=== PATIENT | male | born 1960 | race Caucasian/White ===

== ENCOUNTER → 2016-08-23 | Outpatient (CLI) | payer BC ==
[2016-08-23 13:32] VITALS: BP 135/79; PULSE 73; RESP 16; TEMP 97.9; BMI 37.1
--- NOTE | 2016-10-18 03:32 | P.PN ---
Progress Note - Text DATE OF SERVICE: 09/02/2016 CHIEF COMPLAINT: Follow-up sleeve gastrectomy. HISTORY OF PRESENT ILLNESS: Pablo Dobbs is a 55-year-old gentleman who is status post sleeve gastrectomy in 2012. He has had some difficulty with his weight as he is experiencing weight gain. At his height of 5 feet 9 inches his ideal body weight is 168 pounds. His highest weight was 340 pounds. Today he comes in weighing 251 pounds. He has maintained an 89 pound weight loss. Percentage excess weight loss is 52%. He has gained 2 pounds in approximately 5 months. Body mass index is reduced from 50.3 down to 37.2. Total BMI reduction is 13. He has had troubles with sleep which has also affected his overall weight loss. He uses a CPAP machine where he says is too dry. He now comes in for further evaluation and management. PAST MEDICAL HISTORY: 1. Osteoarthritis. 2. Obstructive sleep apnea. 3. Hypertension. 4. Gastroesophageal reflux disease. PAST SURGICAL HISTORY: 1. Adenoidectomy. 2. Sleeve gastrectomy. 3. Tonsillectomy. 4. Laminectomy. 5. Left shoulder repair x2. MEDICATIONS: 1. Vitamin B12. 2. Multivitamin. ALLERGIES: Denies. SOCIAL HISTORY: No recent tobacco use. He past alcohol use. FAMILY HISTORY: Pertinent for morbid obesity. REVIEW OF SYSTEMS: RESPIRATORY: Has obstructive sleep apnea, however, has difficulty with machine. CONSTITUTIONAL: At his height of 5 feet 9 inches his ideal body weight is 168 pounds. His highest weight was 340 pounds. Today he comes in weighing 251 pounds. He has maintained an 89 pound weight loss. Percentage excess weight loss is 52%. He has gained 2 pounds in approximately 5 months. Body mass index is reduced from 50.3 down to 37.2. Total BMI reduction is 13. HEENT: No trouble with vision, hearing or dysphagia. ENDOCRINE: No reports of diabetes or thyroid disorder. CARDIOVASCULAR: A prior history of hypertension. No reports of recent heart attack or heart disease. GASTROINTESTINAL: Denies any active gastroesophageal reflux disease. No reports of dumping syndrome. MUSCULOSKELETAL: History of osteoarthritis of the back. NEUROLOGIC: No reports of stroke or seizure disorder. PSYCH: No reports of depression or suicidal HEMATOLOGIC: Denies any easy bruising or bleeding. PHYSICAL EXAM: VITAL SIGNS: 97.9, 73, 16, 135/79. GENERAL: Well-developed male in no acute distress. HEENT: No scleral icterus. Extraocular movements grossly intact. Moist buccal mucosa. NECK: Supple without lymphadenopathy. CHEST: Nonlabored respirations. Equal bilateral excursions. CARDIOVASCULAR: Regular rate and rhythm. ABDOMEN: Soft, nontender, nondistended. No palpable incisional hernias. MUSCULOSKELETAL: No clubbing, cyanosis, or edema. NEURO: No focal or lateralizing signs. PSYCH: Appropriate affect. Alert, oriented to person, place, and time. LABS: Previous bariatric metabolic panel was reviewed, demonstrates no nutritional deficiencies. ASSESSMENT: 1. Morbid obesity due to excess calories. 2. Body mass index reduced from 50.3 down to 37.2. 3. Status post sleeve gastrectomy. 4. Weight regain following sleeve gastrectomy. PLAN: 1. With his troubles with sleep apnea this may also affect his overall weight loss. 2. I asked him to chronicle and journal his food entry including protein and calories. Silent calories may also affects his overall weight gain. 3. With regards to his sleep, he does report better sleep without his CPAP machine. 4. Recommend at least a 2 week low-carb, high protein diet for improvement of his weight. 5. Follow-up in approximately one month. [facility]
== END | disposition home or self-care (01) ==
LOC: BARWHC3 13:15
PROVIDERS: ATTEND Surgery Plastic and Reconstructive Surgery
DX: Z48.815 Encounter for surgical aftercare following surgery on the digestive system (principal); E66.01 Morbid (severe) obesity due to excess calories; Z68.37 Body mass index [BMI] 37.0-37.9, adult; Z98.84 Bariatric surgery status; G47.33 Obstructive sleep apnea (adult) (pediatric)
CPT/HCPCS: 99211

== ENCOUNTER → 2016-10-12 | Outpatient (CLI) | payer BC ==
--- NOTE | 2016-10-13 07:04 | PN ---
DATE OF SERVICE: 10/12/2016 A 56-year-old gentleman who had been followed in the sleep center for treatment of obstructive sleep apnea/hypopnea syndrome. Recently patient had a home sleep study and after that started on treatment with auto PAP and I explained the results of the sleep studies in detail. Presently, patient is on treatment with CPAP on automatic regimen with the pressure between 5 and 15 cm of water. Patient has difficulties with the usage of his machine secondary to collection of the water in the tube and then water goes to the mask and his nose. Position of the machine is about the same level as his head. Sometimes he feels that pressure in his mask is too high. No complaints on that pressure in the mask that is too low sometimes. Usage of the machine 27% and 12% for more than 4 hours. The same apnea-hypopnea index is 2.8, which is good range. A leak is up to 32 L per minute. Maximal pressure in CPAP unit 11.1, ( ) 6.9. MEDICATIONS: None at the present time. PHYSICAL EXAMINATION: During physical exam, the patient is in no distress. VITAL SIGNS: BP 133/76, HR 64, RR 16. Weight 254. Temperature 98.1. Oxygen saturation at room air 95%. HEENT: PERRLA. EOMI. Oropharynx extremely low position of soft palate. NECK: Supple. No JVD, Thyroid is not palpable. LUNGS: Clear to percussion and to auscultation. Good air exchange. No wheezing or rhonchi. HEART: S1, S2 regular. No murmurs, gallops, or rubs. ABDOMEN: Slightly obese. PARTS RUNNER: Awake, alert, and oriented x3. Cranial nerves 2 to 7 intact. There is no fasciculation or atrophy noted. No focal deficits observed. IMPRESSION: Obstructive sleep apnea-hypopnea syndrome. Apnea-hypopnea index 11.8. Respiration mostly on control with auto Pap, but patient has difficulties to use CPAP equipment secondary to probably with the humidity. [place] Sleepiness Scale today is 9. During one of the previous visits, it was 16. PLAN: 1. I changed regimen in his CPAP decreasing maximal pressure to 11. 2. We will continue ( ) regimen with range of pressure between 5 and 11. 3. Tube will be an automatic regimen for the heating. 4. Heater I adjusted down to the level 2. 5. Patient will put machine on the lower level than his head and about 2 feet difference in the height. 6. Patient will continue to use his equipment every night for the whole night. I will see the patient for follow-up visit in 2 months. Thank you very much for allowing me to participate in the management of your patient. Sincerely, Castro Gomez MD, PhD, FAASM Diplomat of [place] [employer], Sleep Medicine Board by [place] [employer] [place] [employer] Exercise Instruct of [facility] [place]
== END ==
LOC: SLEEP 16:36
PROVIDERS: ATTEND Internal Medicine
DX: G47.33 Obstructive sleep apnea (adult) (pediatric) (principal)

== ENCOUNTER → 2016-12-07 | Outpatient (CLI) | payer BC ==
--- NOTE | 2016-12-07 17:53 | PN ---
DATE OF SERVICE: 12/07/2016 This patient is a 56-year-old gentleman who has been followed in the sleep center for treatment of obstructive sleep apnea/hypopnea syndrome. During the previous visit, I adjusted the pressure in his CPAP lower. The maximal CPAP pressure is 11. Machine is in automatic regimen with a range of pressure between 5 and 11. With this regimen, patient continued to use equipment every night. He did not bring his machine with him, so I cannot check compliance. No snoring. No sleepiness. [place] Sleepiness Scale today is 9, which is borderline. The patient is experiencing some discomfort with his full-face mask. It is pressing on his nose. MEDICATIONS: None. During physical exam, patient is a pleasant 56-year-old gentleman in no distress. VITAL SIGNS: BP 133/75, HR 60, RR 16. Height 5 feet 8 inches. Weight 255. BMI 38.7. Temperature 98.1. Oxygen saturation at room air 96%. HEENT: PERRLA. EOMI. Evaluation of oropharynx showed tongue protrudes midline; extremely low position of soft palate. NECK: Supple. No JVD. Thyroid is not palpable. LUNGS: Clear to percussion and to auscultation. Good air exchange. No wheezing or rhonchi. HEART: S1, S2 regular. No murmurs, gallops or rubs. ABDOMEN: Soft and non-tender. Bowel sounds are present. No organomegaly appreciated. EXTREMITIES: No clubbing or cyanosis. UPHOLSTERY PARTS SORTER: Awake, alert and oriented x3. Cranial nerves 2 through 7 are intact. There is no fasciculation or atrophy noted. No focal deficits observed. IMPRESSION: 1. Obstructive sleep apnea/hypopnea syndrome. Patient is benefitting from treatment. 2. Obesity. 3. Status post bariatric surgery 3 years ago using a sleeve. 4. Status post left rotation cuff surgery 2 years ago. 5. Status post tonsillectomy in childhood. PLAN: 1. We fitted the patient with a MiraView full-face mask. Patient likes it. I am signing a prescription for this type of mask. 2. Losing weight. 3. Sleep hygiene with regular time in bed for at least 8 hours. 4. No driving if feeling any sleepiness. 5. Using CPAP equipment every night for the whole night. Thank you very much for allowing me to participate in the management of your patient. Sincerely, Castro Stefadu. , PhD, FAASM. Diplomat of [place] [employer], Sleep Medicine Board by [employer] Route Rider Supervisor of [facility] [place] Preferable position during sleep on the side. CARRIE
== END | disposition home or self-care (01) ==
LOC: SLEEP 11:35
PROVIDERS: ATTEND Internal Medicine
DX: G47.33 Obstructive sleep apnea (adult) (pediatric) (principal); E66.9 Obesity, unspecified; Z98.84 Bariatric surgery status

== ENCOUNTER → 2017-02-08 | Outpatient (CLI) | payer BC ==
--- NOTE | 2017-02-08 18:35 | PN ---
PROGRESS NOTE DATE OF SERVICE: 02/08/2017 56-year-old gentleman has been followed in Sleep Center for treatment of obstructive sleep apnea-hypopnea syndrome. The patient was started on treatment with CPAP about 2 months ago with fullface mask Alexandra View, but he has some leak from the mask to the eyes. Subsequently, mask was changed to the nasal pillow mask. Presently, he is trying to use nasal pillow mask air feet P10, but he has difficulties with exhalation because he feels that the pressure is too much while he exhales. Comparing with the previous mask, he feels that the exhaust on the previous mask was much easier then on this particular mask. I checked CPAP unit. It is in automatic regimen from 5-11 cm of water. Most of the time pressure was in the range of 7.9. The patient used it 01/20 nights and only 1 night for more than 4 hours. Leak is 14 L/minute which is acceptable. Apnea-hypopnea index on the machine is 1.9, which is perfect. [place] Sleepiness Scale significantly increased to 19. MEDICATIONS: None. PHYSICAL EXAM: Patient in no distress. BP 110/62, HR 84, RR 16, height 5 feet 8 inches, weight 258, BMI 39.2, temperature 98.2, oxygen saturation room air 97%. HEENT: PERRLA, EOMI. Evaluation of oropharynx showed extremely low position of soft palate. NECK: Supple. No JVD. Thyroid is not palpable. LUNGS: Clear to percussion and to auscultation. Good air exchange. No wheezing or rhonchi. HEART: S1, S2 regular. No murmurs, gallops or rubs. ABDOMEN: Slightly obese. Soft and nontender. Bowel sounds are present. No organomegaly appreciated. EXTREMITIES: No cyanosis or clubbing. BRIQUETTE MAKER: Awake, alert and oriented x3. Cranial nerves II through VII intact. There is no fasciculation or atrophy noted. No focal deficits observed. IMPRESSION: 1. Obstructive sleep apnea-hypopnea syndrome. Patient cannot use his CPAP equipment properly because he has difficulties with exhalation. Cannot exhale against the pressure. 2. Status post bariatric surgery 3 years ago. 3. Status post left rotator cuff surgery 2 years ago. 4. Status post tonsillectomy in childhood. 5. Obesity, BMI 39.2. PLAN: 1. We will try a different style of nasal pillow mask with the larger exhaust. 2. If it will not work, we may need to consider using of BiPAP machine. 3. I changed maximal pressure in CPAP unit to 8.2 cm of water. 4. Losing weight. 5. Sleep hygiene with regular time in bed for at least 8 hours. 6. No driving if feeling any sleepiness. Thank you very much for allowing me to participate in management of your patient. Sincerely, Castro Gomez MD, PhD, FAASM Diplomat of [place] [employer], Sleep Medicine Board by [place] [employer] [employer] Flight Operations Inspector of [facility] [place] MMODL / IJN: [id number] /
== END | disposition home or self-care (01) ==
LOC: SLEEP 15:07
PROVIDERS: ATTEND Internal Medicine
DX: G47.33 Obstructive sleep apnea (adult) (pediatric) (principal); E66.9 Obesity, unspecified; Z98.84 Bariatric surgery status; Z98.890 Other specified postprocedural states; Z68.39 Body mass index [BMI] 39.0-39.9, adult

== ENCOUNTER → 2017-02-26 | Outpatient (CLI) | payer BC ==
--- NOTE | 2017-02-26 23:14 | MR ---
EXAMINATION TYPE: MR lumbar spine wo/w con DATE OF EXAM: 02/26/2017 COMPARISON: 07/01/2013 HISTORY: LBP, BLE radic, prior surgery 4 years ago TECHNIQUE: Multiplanar, multisequence images of the lumbar spine were acquired utilizing 12 mL intravenous Gadav ist gadolinium contrast. The vertebra have normal alignment. There is moderate narrowing of the disc spaces from L2 to L5 with decreased signal in the disks. There is hypertrophic moderate osteophyte formation involving the end plates. There is no paraspinal mass. There is no compression fracture. I see no significant narrowing of the spinal canal. The contrast images show no pathologic enhancement. There is hypertrophic facet arthropathy and bilateral neural foraminal narrowing at L4-5 and L5-S1. IMPRESSION: Moderate multilevel spondylosis. No pathologic enhancement. No adverse change compared to old exam. N o significant spinal stenosis. Mild neural foraminal stenosis due to facet arthropathy.
== END | disposition home or self-care (01) ==
LOC: RADMRIMAIN 17:02
PROVIDERS: ATTEND Family Medicine
DX: M99.73 Connective tissue and disc stenosis of intervertebral foramina of lumbar region (principal); M47.816 Spondylosis without myelopathy or radiculopathy, lumbar region; M46.96 Unspecified inflammatory spondylopathy, lumbar region
CPT/HCPCS: 72158; A9577

== ENCOUNTER → 2018-03-06 | Outpatient (CLI) | payer BC ==
[2018-03-01 14:55] VITALS: BMI 30.8
[2018-03-06 11:44] VITALS: BP 188/77; PULSE 64; RESP 64
--- NOTE | 2018-03-07 19:37 | P.PAINCN ---
History of Present Illness - Reason for Consult Consult date: 03/06/18 - History of Present Illness This is the initial consultation visit for this 57-year-old male with chronic history of severe low back pain, pain started 10 years ago without any initiating event and patient had the lumbar laminectomy surgery done 5 years ago , he had some benefit from the surgery , but over the last 1 year he started complaining of severe low back pain localized in the low back area with radiation to the buttocks and the posterior aspect of both lower extremities, he reported that the pain is constant and increased with changing position, and increased with any activity, he denies any fever or night sweats. Denies any motor or sensory deficits and that is no change in the bowel movement or urination, the pain never radiated to the front of the lower extremities Past Medical History Past Medical History: No Reported History, Sleep Apnea/CPAP/BIPAP Additional Past Medical History / Comment(s): HIATAL HERNIA, gout, lower back pain/sciatica History of Any Multi-Drug Resistant Organisms: None Reported Past Surgical History: Adenoidectomy, Back Surgery, Bariatric Surgery, Orthopedic Surgery, Tonsillectomy Additional Past Surgical History / Comment(s): GASTRIC SLEEVE, gastric bypass, laminectomy, left shoulder surgery x2 Past Anesthesia/Blood Transfusion Reactions: No Reported Reaction Smoking Status: Never smoker - Past Family History Father Additional Family Medical History / Comment(s): 2013 from "old age" per son Mother Family Medical History: No Reported History Medications and Allergies Home Medications Medication Instructions Recorded Confirmed Type Ferrous Sulfate [Feosol] 325 mg PO DAILY 08/30/15 03/01/18 History Multivitamins, Thera [Multivitamin] 1 tab PO DAILY 08/30/15 03/01/18 History Cyanocobalamin (Vitamin B-12) 5,000 mcg PO DAILY 03/15/16 03/01/18 History [Vitamin B12] Allergies Allergy/AdvReac Type Severity Reaction Status Date / Time No Known Allergies Allergy Verified 03/01/18 14:49 Physical Exam Social history : not smoker , NO ETOH , NO Illegal drugs use . Review of Systems : 1- Constitutional : no chills , no fever , no night sweats , 2- Ears : no ear discharge , no change in hearing 3-Nose, Mouth ,Throat ; no bleeding gums, no sore throat , no epistaxis , 4-Cardiovascular : Denies chest pain, , no orthopnea , no palpitation 5-Respiratory : Denies cough , no dyspnea , no hemoptysis 6-Gastrointestinal :, no change in bowel habits , no coffee- ground emesis . 7-Genitourinary : No hematuria , no discharge , no incontinence, 8-Musculoskeletal : No gait dysfunction , report low back pain , 9- Neurological : no ataxia , no tremor , no sezure , 10-Psychatric , no suicidal ideation no hallucination 11- Endocrine : no cold intolerence , no polyuria , no polydypsia , 12-Hematologic : no easy bleeding , no easy brusing , 13-Allergic / immunology : no angioedema , no wheezing ,no allergic rhinitis 14-Integumentary : no brttle nails , no change hair / nails , no foot/leg ulcers . Physical Examinations : 1-Constitutional : Cooperative , not in acute distress . 2-HEENT : nech ; supple , no Lymphadenopathy , no Thyromegaly , :eyes , no icterus, no photophobia . ENT : , normal oropharynx , no Thrush 3- Respiratory : Chest clear to auscultations Bilaterally , no wheezing . 4- Cardiovascular : regular rate and rhythem , S1 , S2 , no S3 , no S4. 5- Gastrointestinal: abdomen soft no tenderness , no organomegally . 6- Genitourinary : Defferred . 7-Integumentary : No cellulitis , no ulcers , normal skin turgor , no cyanotic . 8- neurologic : Cranial nerve II to XII intact , no focal neurological deffecit 9-psychatric : alert , oriented X 3 , appropriate affect , intact judgment and insight . 10-Lymphatic : no Lymphadenopathy. 11- musculoskeltal: normal gait Lumber spine moter stegnth lower extremities ,thigh and legs 5/5 Right side , 5/5 Left side deep tendon reflexes : normal Knee Jerk , normal ankle Jerk positive lumber facet Loading Test Range of motion of the lumbar spine Flexion 60 degrees, extension 30 degrees strait leg raising test , negative bilaterally Fabere test negative bilaterally Results Comments: MRI of the lumbar spine multilevel lumbar facet arthropathy and bilateral foraminal narrowing Assessment and Plan Plan: Assessment and plan=1 chronic severe low back pain secondary to lumbar spondylosis with lumbar facet arthropathy, and failed back surgery syndrome and lumbar area, patient will be good candidate to have diagnostic medial branch block lumbar area at L3 to S1 , x2 and if it was positive then we will proceed with a radiofrequency ablation of the medial branch lumbar area, examination is appropriate that most of the pain is coming from the facetogenic component, the only positive finding during the examination was the facet loading test, the rest of the physical examination was negative for any abnormalities. Procedure risk and benefits and alternatives discussed with the patient he agreed with proceeding. I also explained to the patient that his blood pressure is significantly elevated and he is to follow up with his primary care regarding his high blood pressure Time with Patient: Greater than 30 PQRS Measure Charge Sheet Measure #130: Documentation of Current Meds in Medical Chart: Patient's medications documented in chart Measure #226: Tobacco Use: Screen & Cessation Intervention: Pt not a tobacco user Measure #111: Pneumonia Vaccination: Pneumococcal vaccine NOT administered or previously given Measure #47: Advance Care Plan: Advance care planning discussed & documented, pt chose/unable to give Measure #412: Opioid Treatment Agreement: No documentation of signed opioid treatment agreement Measure #408: Opioid Therapy Follow-up Evaluation: Patient had NO f/u eval minimum every 3 months during opioid therapy Measure #317: Preventitive Care & Scrn High Bld Press & F/U: Pre-hypertensive or hypertensive BP documented, pt will f/u with PCP Measure #128: Body Mass Index (BMI) Screening & Follow-up: BMI documented ABOVE normal parameters - f/u documented Measure #131: Pain Assessment & Follow-up: Pain positive & plan documented, Follow-up scheduled Measure #431: Unhealthy Alcohol Use Preventative Care & Scrn: Patient not identified as an unhealthy alcohol user PQRS Narrative: Smoking Status Never smoker Do You Want the Pneumonia No Vaccine AT THIS TIME? Blood Pressure 188/77 Pain Intensity [Lower Back] 7 Scale Used Numeric (1 - 10) Hx Alcohol Use (MH) No Home Medications: Ambulatory Orders Ferrous Sulfate [Feosol] 325 mg PO DAILY 08/30/15 Multivitamins, Thera [Multivitamin] 1 tab PO DAILY 08/30/15 Cyanocobalamin (Vitamin B-12) [Vitamin B12] 5,000 mcg PO DAILY 03/15/16
== END ==
LOC: PNWHC3 11:01
PROVIDERS: ATTEND Specialist
DX: G89.29 Other chronic pain (principal); M47.816 Spondylosis without myelopathy or radiculopathy, lumbar region; M46.96 Unspecified inflammatory spondylopathy, lumbar region; M96.1 Postlaminectomy syndrome, not elsewhere classified; Z79.899 Other long term (current) drug therapy
CPT/HCPCS: 99211

== ENCOUNTER → 2018-03-12 | Day surgery (SDC) | payer BC ==
[2018-03-12 09:55] VITALS: TEMP 98
--- NOTE | 2018-03-12 10:44 | P.PCN ---
Date of Procedure: 03/12/18 Surgeon: Brendan Narvaez Description of Procedure: PREOPERATIVE DIAGNOSIS : Lumbar spondylosis with Facet Arthropathy without myelopathy POSTOPERATIVE DIAGNOSIS: same PROCEDURE: Diagnostic lumbar medial branch block with fluoroscopy at bilateral L4, L5, sacral ala ANESTHESIA: Local anesthetic; Surgeon: Brendan Narvaez MD PROCEDURE INDICATION: This is a pleasant 57-year-old gentleman with a history of previous back surgery who has significant lumbar spondylosis and presents today for his first diagnostic lumbar medial branch nerve blocks. PROCEDURE DESCRIPTION: the patient was seen and identified in the preop holding area , risks and benefits and possible complications of the procedure and alternative were discussed with the patient, and the patient agreed to proceed with the procedure and signed the consent patient was taken to procedure room and placed in the prone position. He was monitored with standard monitors. Under strict sterile technique using a right oblique fluoroscopy ,the junction of the transverse process and the superior articulating process of the right L3- 4 , L4- 5, and L5 -S1 vertebra which corresponding to the fluoroscopy image of the eye of the Fidel dog on the block side for the medial branches and subsequently , after local infiltration of skin and subcutaneous tissues with lidocaine 1% one mL at each level ,then one 25-gauge Quincke-type needles was placed at the junction of the base of the transverse process and the superior articular process at the appropriate level, and the needle was advanced until the periosteum contacted, needle placement confirmed with AP oblique and lateral view and after appropriate needle placement confirmed, and after negative aspiration, 0.5 mL of Marcaine 0.5% mixed with 40 mg depomedrol in divided doses was injected at each level and the needle subsequently removed . This procedure was then repeated on the left. At the end of the procedure and the needles removed and a bandage applied after the skin was cleaned the cleaning solution patient taken to recovery room in stable condition and monitors in the recovery room for 20-30 minutes and discharged home in stable condition after discharge criteria met and patient will follow up for repeat of this procedure in 2-4 weeks. He may be good candidate for radio frequency ablation future. EBL: Minimal COMPLICATION: None.
--- NOTE | 2018-03-12 11:03 | FL ---
EXAMINATION TYPE: FL guided pain mgmt statistic DATE OF EXAM: 03/12/2018 COMPARISON: NONE HISTORY: Back pain. Fluoroscopic documentation TECHNIQUE: Fluoroscopy. FINDINGS/IMPRESSION: Fluoroscopic guidance was provided during procedure performed by Dr. Narvaez. A total of 1 seconds of fluoroscopic time was utilized during the procedure and 1 spot images was acqu ired demonstrating multilevel localization bilaterally over the lumbar spine.
[2018-03-12 11:08] VITALS: BP 130/77; PULSE 71; RESP 18
== END | disposition home or self-care (01) ==
LOC: ORPAIN 09:20
PROVIDERS: ATTEND Anesthesiology
DX: M47.816 Spondylosis without myelopathy or radiculopathy, lumbar region (principal); G89.29 Other chronic pain; M96.1 Postlaminectomy syndrome, not elsewhere classified; G47.30 Sleep apnea, unspecified; Z99.89 Dependence on other enabling machines and devices; Z98.84 Bariatric surgery status

== ENCOUNTER 2018-03-28 06:02 | Day surgery (SDC) | payer BC ==
[2018-03-26 12:44] VITALS: BMI 30.8
[2018-03-28 06:57] VITALS: RESP 18; TEMP 97.8
--- NOTE | 2018-03-28 07:29 | P.PCN ---
Date of Procedure: 03/28/18 Preoperative Diagnosis: Lumbar spondylosis without myelopathy Postoperative Diagnosis: Same Procedure(s) Performed: Lumbar medial branch block Surgeon: Chauncey Colon Description of Procedure: Surgeon: Chauncey Colon MD. Procedure: Bilateral lumbar Medial Branch Block at L3/4, L4/5, and L5/S1 No sedation Given for: Anxiety and fear of needles. The patient was seen and examined in the PO. Procedure risks and benefits were fully reviewed with the patient. The patient understands this is a diagnostic if local only is used, as will be the case today. The goal of the procedure is to inject medication into the medial branch or small nerves that go into the facet joints. In this way, we can hopefully identify which of these joints, if any, may be contributing to their pain. Informed consent for procedure was obtained. The patient was taken into the office fluoroscopy procedure room and placed prone on the table. A pillow was placed under the abdomen to reduce lumbar lordosis. Vital signs were closely monitored during the procedure. The skin over the area was prepped with Betadine X 3 and draped in usual sterile manner. Sterile technique was observed throughout procedure. Under biplanar fluoroscopic guidance, the target injection area of the L3, L4, L5 and sacral ala bilateral were targeted. A 25 gauge 31/2 inch spinal needle was then placed at the most medial and superior aspect of the transverse process near the "eye of the Fidel dog". Aspiration for blood was negative. 1 cc of 0.5% marcaine was injected into the targeted areas separately. [place] were withdrawn intact. No complications were noted during the procedure. The patient tolerated the procedure well. The patient was placed in supine position and transferred to the recovery area for observation and remained stable until discharged home. Home discharge instructions were given to the patient by the staff. The patient will schedule a follow up as directed.
[2018-03-28 07:59] VITALS: BP 133/83; PULSE 58
--- NOTE | 2018-03-28 09:32 | FL ---
EXAMINATION TYPE: FL guided pain mgmt statistic DATE OF EXAM: 03/28/2018 FLUOROSCOPY Fluoroscopy time of 21 seconds was used during bilateral lumbar injection. 5 image/s document/s the procedure.
== END 2018-03-28 08:17 | disposition home or self-care (01) ==
LOC: ORPAIN 06:02
PROVIDERS: ATTEND Hospitalist
DX: M47.816 Spondylosis without myelopathy or radiculopathy, lumbar region (principal)

== ENCOUNTER → 2018-04-09 | Outpatient (CLI) | payer BC ==
[2018-04-09 14:52] VITALS: BP 130/84; PULSE 63; RESP 16
--- NOTE | 2018-04-10 14:05 | P.PN ---
Subjective Progress Note Date: 04/09/18 This is the follow up visit for this 57-year-old male with chronic history of severe low back pain, was diagnosed with lumbar spondylosis with lumbar facet arthropathy , and failed back surgery syndrome and lumbar area , we have done diagnostic medial branch blocks lumbar area 2 , she reported that his low back pain dropped from 8/10 before the block to 2/10 after the first block , with the second block the pain dropped from 4/10- droped to 0/10 and the pain relief was for short-term , patient continued to have severe ,constant pain , the pain increased with changing position, and increased with any activity, he denies any fever or night sweats. Denies any motor or sensory deficits and that is no change in the bowel movement or urination, the pain never radiated to the front of the lower extremities Physical Examinations : 1-Constitutional : Cooperative , not in acute distress . 2-HEENT : nech ; supple , no Lymphadenopathy , no Thyromegaly , :eyes , no icterus, no photophobia . ENT : , normal oropharynx , no Thrush 3- Respiratory : Chest clear to auscultations Bilaterally , no wheezing . 4- Cardiovascular : regular rate and rhythem , S1 , S2 , no S3 , no S4. 5- Gastrointestinal: abdomen soft no tenderness , no organomegally . 6- Genitourinary : Defferred . 7-Integumentary : No cellulitis , no ulcers , normal skin turgor , no cyanotic . 8- neurologic : Cranial nerve II to XII intact , no focal neurological deffecit 9-psychatric : alert , oriented X 3 , appropriate affect , intact judgment and insight . 10-Lymphatic : no Lymphadenopathy. 11- musculoskeltal: normal gait Lumber spine moter stegnth lower extremities ,thigh and legs 5/5 Right side , 5/5 Left side deep tendon reflexes : normal Knee Jerk , normal ankle Jerk positive lumber facet Loading Test Range of motion of the lumbar spine Flexion 60 degrees, extension 30 degrees strait leg raising test , negative bilaterally Fabere test negative bilaterally Results: MRI of the lumbar spine multilevel lumbar facet arthropathy and bilateral foraminal narrowing Assessment and plan=1 chronic severe low back pain secondary to lumbar spondylosis with lumbar facet arthropathy, and failed back surgery syndrome and lumbar area, patient will be good candidate to have radiofrequency ablation of the medial branch lumbar area L3 to S1, we'll start with the left side than to the right side PQRS Measure Charge Sheet Measure #130: Documentation of Current Meds in Medical Chart: Patient's medications documented in chart Measure #226: Tobacco Use: Screen & Cessation Intervention: Pt not a tobacco user Measure #111: Pneumonia Vaccination: Pneumococcal vaccine NOT administered or previously given Measure #47: Advance Care Plan: Advance care planning discussed & documented, pt chose/unable to give Measure #412: Opioid Treatment Agreement: No documentation of signed opioid treatment agreement Measure #408: Opioid Therapy Follow-up Evaluation: Patient had NO f/u eval minimum every 3 months during opioid therapy Measure #317: Preventitive Care & Scrn High Bld Press & F/U: normal BP (130/ 84 ) documented, pt will f/u with PCP Measure #128: Body Mass Index (BMI) Screening & Follow-up: BMI documented ( 30,8 )ABOVE normal parameters - f/u documented Measure #131: Pain Assessment & Follow-up: Pain positive & plan documented, Follow-up scheduled Measure #431: Unhealthy Alcohol Use Preventative Care & Scrn: Patient not identified as an unhealthy alcohol user PQRS Narrative: Objective - Vital Signs Vital signs: Vital Signs Temp Pulse 63 04/09/18 14:41 Resp 16 04/09/18 14:41 BP 130/84 04/09/18 14:41 Pulse Ox 98 04/09/18 14:41 Intake & Output 04/09/18 04/10/18 04/10/18 18:59 06:59 18:59 Weight 97.522 kg
== END | disposition home or self-care (01) ==
LOC: PNWHC3 13:57
PROVIDERS: ATTEND Specialist
DX: G89.29 Other chronic pain (principal); M96.1 Postlaminectomy syndrome, not elsewhere classified; M47.816 Spondylosis without myelopathy or radiculopathy, lumbar region; M46.96 Unspecified inflammatory spondylopathy, lumbar region
CPT/HCPCS: 99211

== ENCOUNTER 2018-05-06 07:38 | Day surgery (SDC) | payer BC ==
[2018-05-02 14:25] VITALS: BMI 30.8
[~2018-05-06 07:38] MED LIST: SODIUM CHLORIDE 0.9% 500 ML 500 ML IV SCH
[2018-05-06 08:13] VITALS: RESP 16; TEMP 97.5
--- NOTE | 2018-05-06 09:46 | P.PCN ---
Date of Procedure: 05/06/18 Procedure(s) Performed: PREOPERATIVE DIAGNOSIS: 1-Lumbar Spondylosis with Facet Arthropathy without myelopathy. 2- Lumber degenerative disc disease POSTOPERATIVE DIAGNOSIS: 1- Lumbar Spondylosis with Facet Arthropathy without myelopathy. 2- Lumber degenerative disc disease PROCEDURES : Left Radiofrequency thermocoagulation, L3-L4, L4-L5, and L5-S1 medial branch, with fluoroscopic guidance ANESTHESIA: local infiltration with Ropivacaine 0.5 % . ( NO IV sedation ) EBL: Minimal PROCEDURE INDICATION: The patient with low back pain secondary to lumbar facet arthropathy who had more than 50% relief of her pain with previous diagnostic lumbar medial branch block with bupivacaine. PROCEDURE DESCRIPTION / TECHNIQUE: The patient was seen and identified in the preoperative area. Risks, benefits, complications, including but not limited to risk of infection ,bleeding , allergic reactions to the medications and no complete pain releife , and alternatives were discussed with the patient, the patient agreed to proceed with the procedure and signed the consent. Vital signs remained stable throughout the procedure. Patient was taken to the OR and time out was completed. The patient was placed in the prone position on the procedure table. The lumber area was prepped and draped in the usual sterile fashion. . Vital signs were closely monitored during the procedure . Using AP and then oblique fluoroscopy, the ``eye of the Fidel dog corresponding to the connection between the superior and transverse articular processes of left L3, L4, and L5 were identified, marked, and localized with 1 % lidocaine. Subsequently, a 18 [id number] radiofrequency cannula with a 10- mm active tip was advanced guided by fluoroscopy to each of the``eyes of the Fidel dog at left L3, L4, and L5. Each site then underwent sensory testing at 50 Hz and 0 to 1 volt and motor testing at 2.5 Hz and 0 to 3 volt with local stimulation, but no radicular symptoms down the legs. Thereafter the left L3-4, L4-5, and L5-S1 sites underwent radiofrequency thermocoagulation at 80 degrees celsius for 90 seconds after injecting 0.5 ml of PF Ropivacaine 1ml, then after the thermocoagulation done , 1 ml of the block solution containing Kenalog 40 mg and 3 ml of Ropivacaine 0.5% was injected at the left L3-4 , L4 -5 , and L5-S1, levels after negative aspiration of CSF and blood and with no paresthesias. Cannulas were retracted while injecting lidocaine 1% until the needle is out. At the end of the procedure, the skin was cleansed and bandages were applied. COMPLICATIONS: No acute complications. DISPOSITION / PLANS: The patient was placed in a supine position and transferred to the recovery area in a stable condition for observation and was discharged from the recovery room after meeting discharge criteria. Home discharge instructions given to the patient by the staff. The patient was reexamined prior to discharge. The patient will schedule a follow up in the clinic in 2-4 weeks.
[2018-05-06 10:24] VITALS: BP 122/76; PULSE 59
--- NOTE | 2018-05-06 10:40 | FL ---
EXAMINATION TYPE: FL guided pain mgmt statistic DATE OF EXAM: 05/06/2018 CLINICAL HISTORY: Low back pain. TECHNIQUE: Fluoroscopy. COMPARISON: None. FINDINGS: Fluoroscopic guidance was provided during pain relief procedure performed by Dr. Olivares . A total of 13 seconds of fluoroscopic time was utilized during the procedure and 3 spot images are acquired. Images acquired shows needle localization at multiple levels within the lumbar spine. IMPRESSION: As Above.
== END 2018-05-06 10:25 | disposition home or self-care (01) ==
LOC: ORPAIN 07:38
PROVIDERS: ATTEND Specialist
DX: M47.816 Spondylosis without myelopathy or radiculopathy, lumbar region (principal); M51.36 Other intervertebral disc degeneration, lumbar region
CPT/HCPCS: 64635; 64636 ×2; J1030

== ENCOUNTER 2018-06-06 06:35 | Day surgery (SDC) | payer BC ==
[2018-06-05 10:13] VITALS: BMI 31.5
[2018-06-06 07:25] VITALS: RESP 16; TEMP 98.2
--- NOTE | 2018-06-06 08:51 | P.PCN ---
Date of Procedure: 06/06/18 Surgeon: Zain Alcazar Pathology: none sent Condition: stable Disposition: PACU Description of Procedure: PREOPERATIVE DIAGNOSIS: Lumbar spondylosis without myelopathy,PLPS POSTOPERATIVE DIAGNOSIS: Lumbar spondylosis without myelopathy,PLPS PROCEDURES : Radiofrequency thermocoagulation L3-L4, L4-L5, and L5-S1 medial branch, with fluoroscopic guidance ANESTHESIA: Local only with 1% lidocaine EBL: Minimal PROCEDURE INDICATION: The patient with low back pain secondary to lumbar facet arthropathy who had more than 50% relief of her pain with previous diagnostic lumbar medial branch block with bupivacaine. PROCEDURE DESCRIPTION / TECHNIQUE: The patient was seen and identified in the preoperative area. Risks, benefits, complications, including but not limited to risk of infection ,bleeding , allergic reactions to the medications and no complete pain relief , and alternatives were discussed with the patient, the patient agreed to proceed with the procedure and signed the consent. IV was started. Vital signs remained stable throughout the procedure. Patient was taken to the OR and time out was completed. The patient was placed in the prone position on the procedure table. The lumber area was prepped and draped in the usual sterile fashion. . Vital signs were closely monitored during the procedure .IV sedation was used during the procedure to decrease patients anxiety. The target points were identified as follows: For the L5-S1 level which corresponds to the dorsal ramus of L5 the target point was at the superior medial aspect of the sacral ala on the Rt side of the spine on the AP view of fluoroscopy and for the L2, L3, and L4 medial branches the target points were at the connection between the transverse process and the superior articular process of L3, L4, and L5 vertebra respectively on the Rt oblique view of fluoroscopy. skin was marked, and localized with 1% lidocaineat these points. Subsequently, an 18 -kt radiofrequency needles with a 10-mm curved active tips were advanced guided by fluoroscopy to each of the target points mentioned above in a superior medial direction to get the active tips as parallel as possible to the medial branches tracks. AP, oblique, and lateral views of fluoroscopy were used to verify needle tips position. Each level then underwent motor testing at 2.5 Hz and 0 to 3 volt with local stimulation, but no radicular symptoms down the legs. Thereafter radiofrequency thermocoagulation at 80 degrees celsius for 90 seconds after injecting 1 ml of PF Marcaine 0.5%(3 mls) with 40 mg of Kenalog. At the end of the procedure, the skin was cleansed and bandages were applied. COMPLICATIONS: No acute complications. DISPOSITION / PLANS: The patient was placed in a supine position and transferred to the recovery area in a stable condition for observation and was discharged from the recovery room after meeting discharge criteria. Home discharge instructions given to the patient by the staff. The patient was reexamined prior to discharge. The patient will schedule a follow up in the clinic in 2-4 weeks.
[2018-06-06 09:07] VITALS: BP 145/92; PULSE 74
--- NOTE | 2018-06-06 09:10 | FL ---
Fluoroscopy INDICATION: Pain FINDINGS: Fluoroscopy time: 45 seconds. Images obtained: 4. IMPRESSIONS: 1. Documentation of fluoroscopy.
== END 2018-06-06 09:14 | disposition home or self-care (01) ==
LOC: ORPAIN 06:35
PROVIDERS: ATTEND Anesthesiology
DX: M47.816 Spondylosis without myelopathy or radiculopathy, lumbar region (principal)
CPT/HCPCS: 64635; 64636 ×2; J3301; 99152

== ENCOUNTER 2019-05-21 09:55 | Day surgery (SDC) | payer BC ==
[2019-05-19 10:58] VITALS: BMI 28.7
[~2019-05-21 09:55] MED LIST changes: +BUPIVACAINE (PF) 0.5% 30 ML VIAL ONE; -SODIUM CHLORIDE 0.9% 500 ML 500 ML IV SCH; +methylPREDNISolone ACETATE 40 MG/ML 1 ML VIAL ONE
[2019-05-21 11:02] VITALS: RESP 16; TEMP 98.2
--- NOTE | 2019-05-21 11:44 | P.PCN ---
Date of Procedure: 05/21/19 Procedure(s) Performed: PREOPERATIVE DIAGNOSIS: 1-Lumbar Spondylosis with Facet Arthropathy without myelopathy. 2- Lumber postlaminectomy pain syndrome POSTOPERATIVE DIAGNOSIS: 1- Lumbar Spondylosis with Facet Arthropathy without myelopathy. 2- Lumber postlaminectomy pain syndrome PROCEDURES : Left Radiofrequency thermocoagulation,L2 , L3 , L4 , and L5 medial branch, with fluoroscopic guidance (fluoroscopy images available in the radiology department) ( to denervate the facet joint at L3-4 ,L4-5 ,and L5-S1 levels ) ANESTHESIA: only local infiltration with Ropivacaine 0.5 % 8 ml . EBL: Minimal PROCEDURE INDICATION: The patient with low back pain secondary to lumbar facet arthropathy who had more than 50% relief of her pain with previous diagnostic lumbar medial branch block with bupivacaine. PROCEDURE DESCRIPTION / TECHNIQUE: The patient was seen and identified in the preoperative area. Risks, benefits, complications, including but not limited to risk of infection ,bleeding , allergic reactions to the medications and no complete pain releife , and alternatives were discussed with the patient, the patient agreed to proceed with the procedure and signed the consent. Vital signs remained stable throughout the procedure. Patient was taken to the OR and time out was completed. The patient was placed in the prone position on the procedure table. The lumber area was prepped and draped in the usual sterile fashion. . Vital signs were closely monitored during the procedure (patient wanted no IV sedation) Using AP and then oblique fluoroscopy, the ``eye of the Fidel dog corresponding to the connection between the superior and transverse articular processes of Left L2 , L3, L4, and L5 were identified, marked, and localized with 1% lidocaine. Subsequently, a 18 [id number] radiofrequency cannula with a 10-mm active tip was advanced guided by fluoroscopy to each of the``eyes of the Fidel dog at Left L2 , L3, L4, and L5. Each site then underwent sensory testing at 50 Hz and 0 to 1 volt and motor testing at 2.5 Hz and 0 to 3 volt with local stimulation, but no radicular symptoms down the legs. Thereafter the Left L2 ,L3, L4 , and L5 sites underwent radiofrequency thermocoagulation at 80 degrees celsius for 90 seconds after injecting 0.5 ml of PF Ropivacaine 1ml, then after the thermocoagulation done , 1 ml of the block solution containing Depo-Medrol 40 mg and 3 ml of Ropivacaine 0.5% was injected at the Left L2 ,L3 , L4 , and L5 , levels after negative aspiration of CSF and blood and with no paresthesias. Cannulas were retracted while injecting lidocaine 1% until the needle is out. At the end of the procedure, the skin was cleansed and bandages were applied. COMPLICATIONS: No acute complications. DISPOSITION / PLANS: The patient was placed in a supine position and transferred to the recovery area in a stable condition for observation and was discharged from the recovery room after meeting discharge criteria. Home discharge instructions given to the patient by the staff. The patient was reexa mined prior to discharge. The patient will schedule a follow up in the clinic in 2-4 weeks.
[2019-05-21 12:04] VITALS: BP 112/78; PULSE 71
--- NOTE | 2019-05-21 14:30 | FL ---
EXAMINATION TYPE: FL guided pain mgmt statistic DATE OF EXAM: 05/21/2019 CLINICAL HISTORY: Low back pain. TECHNIQUE: Fluoroscopy. COMPARISON: None. FINDINGS: Fluoroscopic guidance was provided during pain relief procedure performed by Dr. Olivares . A total of 7 seconds of fluoroscopic time was utilized during the procedure and two spot images ar e acquired. Images acquired shows needle localization at multiple levels of the lumbar spine. IMPRESSION: As Above.
== END 2019-05-21 12:09 | disposition home or self-care (01) ==
LOC: ORPAIN 09:55
PROVIDERS: ATTEND Specialist
DX: M47.816 Spondylosis without myelopathy or radiculopathy, lumbar region (principal); M96.1 Postlaminectomy syndrome, not elsewhere classified
CPT/HCPCS: 64635; 64636 ×2; J1030

== ENCOUNTER 2019-05-27 05:55 | Day surgery (SDC) | payer BC ==
[2019-05-27 06:07] VITALS: TEMP 97.8
--- NOTE | 2019-05-27 07:39 | P.PCN ---
Date of Procedure: 05/27/19 Anesthesia: none Surgeon: Zain Alcazar Pathology: none sent Condition: stable Disposition: PACU Description of Procedure: PREOPERATIVE DIAGNOSIS: 1-Lumbar Spondylosis with Facet Arthropathy without myelopathy. 2- Lumber postlaminectomy pain syndrome POSTOPERATIVE DIAGNOSIS: 1- Lumbar Spondylosis with Facet Arthropathy without myelopathy. 2- Lumber postlaminectomy pain syndrome PROCEDURES : Right Radiofrequency thermocoagulation,L2 , L3 , L4 , and L5 medial branch, with fluoroscopic guidance (fluoroscopy images available in the radiology department) ( to denervate the facet joint at L3-4 ,L4-5 ,and L5-S1 levels ) ANESTHESIA: only local infiltration with Lidocaine 1 % . EBL: Minimal PROCEDURE INDICATION: The patient with low back pain secondary to lumbar facet arthropathy who had more than 50% relief of her pain with previous diagnostic lumbar medial branch block with bupivacaine. PROCEDURE DESCRIPTION / TECHNIQUE: The patient was seen and identified in the preoperative area. Risks, benefits, complications, including but not limited to risk of infection ,bleeding , allergic reactions to the medications and no complete pain releife , and alternatives were discussed with the patient, the patient agreed to proceed with the procedure and signed the consent. Vital signs remained stable throughout the procedure. Patient was taken to the OR and time out was completed. The patient was placed in the prone position on the procedure table. The lumber area was prepped and draped in the usual sterile fashion. . Vital signs were closely monitored during the procedure (patient wanted no IV sedation) Using AP and then oblique fluoroscopy, the ``eye of the Fidel dog corresponding to the connection between the superior and transverse articular processes of Right L2 , L3, L4, and L5 were identified, marked, and localized with 1% lidocaine. Subsequently, a 18 -vo radiofrequency cannula with a 10-mm active tip was advanced guided by fluoroscopy to each of the``eyes of the Fidel dog at Right L2 , L3, L4, and L5. Each site then underwent sensory testing at 50 Hz and 0 to 1 volt and motor testing at 2.5 Hz and 0 to 3 volt with local stimulation, but no radicular symptoms down the legs. Thereafter the Right L2 ,L3, L4 , and L5 sites underwent radiofrequency thermocoagulation at 80 degrees celsius for 90 seconds after injecting 0.5 ml of PF Ropivacaine 1ml, then after the thermocoagulation done , 1 ml of the block solution containing Depo-Medrol 40 mg and 3 ml of Ropivacaine 0.5% was injected at the Right L2 ,L3 , L4 , and L5 , levels after negative aspiration of CSF and blood and with no paresthesias. Cannulas were retracted while injecting lidocaine 1% until the needle is out. At the end of the procedure, the skin was cleansed and bandages were applied. COMPLICATIONS: No acute complications. DISPOSITION / PLANS: The patient was placed in a supine position and transferred to the recovery area in a stable condition for observation and was discharged from the recovery room after meeting discharge criteria. Home discharge instructions given to the patient by the staff. The patient was r eexamined prior to discharge. The patient will schedule a follow up in the clinic in 2-4 weeks.
[2019-05-27 07:52] VITALS: BP 116/78; PULSE 64; RESP 20
--- NOTE | 2019-05-27 09:39 | FL ---
EXAMINATION TYPE: FL guided pain mgmt statistic DATE OF EXAM: 05/27/2019 FLUOROSCOPY Fluoroscopy time of 14 seconds was used during right-sided radiofrequency ablation of the lumbar spin e. 3 image/s document/s the procedure.
== END 2019-05-27 08:04 | disposition home or self-care (01) ==
LOC: ORPAIN 05:55
PROVIDERS: ATTEND Anesthesiology
DX: M47.816 Spondylosis without myelopathy or radiculopathy, lumbar region (principal); M96.1 Postlaminectomy syndrome, not elsewhere classified
CPT/HCPCS: 64635; 64636; J1030; 99152; 99153

== ENCOUNTER 2019-11-11 10:46 | Day surgery (SDC) | payer BC ==
[2019-11-11 11:03] VITALS: RESP 18; TEMP 97.8
[2019-11-11] MEDS ORDERED: LIDOCAINE 4% (PF) 5 ML AMP ONE (11:45)
--- NOTE | 2019-11-11 12:13 | P.PCN ---
Date of Procedure: 11/11/19 Procedure(s) Performed: PREOPERATIVE DIAGNOSIS: Lumbar Spondylosis POSTOPERATIVE DIAGNOSIS: Same PROCEDURES: Radiofrequency ablation of the L2, L3, L4, L5 medial branches with fluoroscopic guidance on the left side SURGEON: Shayan Renner MD. ANESTHESIA: Lidocaine 1% 5 mL, no IV sedation was used EBL: Minimal Fluoroscopy was used for the procedure and images were saved in the radiology portion of the chart. PROCEDURE INDICATION: The patient with low back pain secondary to lumbar facet arthropathy who had more than 50% relief of pain with previous diagnostic lumbar medial branch block X2. PROCEDURE DESCRIPTION / TECHNIQUE: The patient was seen and identified in the preoperative area. Risks, benefits, complications, including but not limited to risk of infection ,bleeding , allergic reactions to the medications and incomplete pain relief , and alternatives were discussed with the patient, the patient agreed to proceed with the procedure and signed the consent. The operative site was marked. Patient was taken to the OR and time out was completed. The patient was placed in the prone position on the procedure table. The lumbar area was prepped and draped in the usual sterile fashion. . Vital signs were closely monitored during the procedure. Using AP and then oblique fluoroscopy, the "eye of the Fidel dog" corresponding to the connection between the superior and transverse articular processes of the L3, L4 and L5 as well as the sacral ala were identified, marked, and lo calized with 1% lidocaine. Subsequently, an 18 guage 100 mm radiofrequency cannula with a 10-mm active tip was advanced guided by fluoroscopy to the identified target at each site. Needle positioning was confirmed on AP, oblique and lateral fluoroscopy. Motor testing at 2.5 Hz was done with paraspinal muscle stimulation only, and no radicular symptoms down the legs. Then 1 mL of 4% lidocaine was injected in each site. Radiofrequency thermocoagulation at 80 degrees celsius for 90 seconds was then performed. [place] were removed. Sterile dressings were applied. COMPLICATIONS: No acute complications. DISPOSITION / PLANS: The patient was placed in a supine position and transferred to the recovery area in a stable condition for observation and was discharged from the recovery room after meeting discharge criteria. Home discharge instructions given to the patient by the staff. The patient will follow up for right sided radiofrequency ablation in 2 weeks.
[2019-11-11 12:25] VITALS: BP 133/80; PULSE 52
--- NOTE | 2019-11-11 14:33 | FL ---
EXAMINATION TYPE: FL guided pain mgmt statistic DATE OF EXAM: 11/11/2019 FLUOROSCOPY Fluoroscopy time of 7 seconds was used during left lumbar radiofrequency ablation. 7 image/s documen t/s the procedure.
== END 2019-11-11 12:35 | disposition home or self-care (01) ==
LOC: ORPAIN 10:46
PROVIDERS: ATTEND Anesthesiology
DX: M47.816 Spondylosis without myelopathy or radiculopathy, lumbar region (principal)
CPT/HCPCS: 64635; 64636 ×2; J2001

== ENCOUNTER → 2019-12-22 | Outpatient (CLI) | payer BC ==
[2019-12-22 08:20] VITALS: BP 135/81; PULSE 66; RESP 18; TEMP 98.4
--- NOTE | 2019-12-22 08:35 | P.PAINPG ---
Subjective Progress Note Date: 12/22/19 This is the follow up visit for this [id number] male with chronic history of severe low back pain, was diagnosed with lumbar spondylosis with lumbar facet arthropathy , and failed back surgery syndrome and lumbar area , recently we have done RFA of the medial branch lumbar area on the left side ,patient continued to have severe low back pain with radiation to left lower extremity,constant pain , the pain increased with changing position, and increased with any activity, he denies any fever or night sweats. Denies any motor or sensory deficits and that is no change in the bowel movement or urination, the pain never radiated to the front of the lower extremities Objective - Vital Signs Vital signs: Vital Signs Temp 98.4 F 12/22/19 08:13 Pulse 66 12/22/19 08:13 Resp 18 12/22/19 08:13 BP 135/81 12/22/19 08:13 Pulse Ox 96 12/22/19 08:13 - Exam -Constitutiona : Cooperative , not in acute distress . -HEENT : nech : supple , no Lymphadenopathy , normal thyroid size . : eyes : no ptosis , no icterus, no photophobia . - neurologic : Cranial nerve II to XII intact , no focal neurological deffecit . -psychatric : alert , oriented X 3 , appropriate affect , intact judgment and insight . -Lymphatic : no Lymphadenopathy . - musculoskeltal : Lumber spine moter stegnth lower extremities ,thigh and legs 5/5 Right side , 5/5 Left side deep tendon reflexes : normal Knee Jerk , normal ankle Jerk lumber facet Loading Test =positive Right , positive Left Range of motion of the lumbar spine Flexion 60 degrees, extension 30 degrees strait leg raising test = negative bilateral Fabere test= negative bilaterally Assessment and Plan Plan: Assessment and plan=1-failed back surgery syndrome and lumbar area. 2-Lumbar spondylosis with lumbar facet arthropathy without myelopathy. 3-lumbar foraminal stenosis. Patient continued to have severe low back pain with radicular to the left lower extremity after RFA of the left medial Branch lumbar area Description could benefit from caudal epidural with lysis of epidural adhesions under fluoroscopy Time with Patient: Less than 30 PQRS Measure Charge Sheet Measure #130: Documentation of Current Meds in Medical Chart: Patient's medications documented in chart Measure #226: Tobacco Use: Screen & Cessation Intervention: Pt not a tobacco user Measure #111: Pneumonia Vaccination: Pneumococcal vaccine NOT administered or previously given Measure #47: Advance Care Plan: Advance care planning discussed & documented, pt chose/unable to give Measure #412: Opioid Treatment Agreement: No documentation of signed opioid treatment agreement Measure #408: Opioid Therapy Follow-up Evaluation: Patient had NO f/u eval minimum every 3 months during opioid therapy Measure #317: Preventitive Care & Scrn High Bld Press & F/U: Normal blood pressure, f/u not required Measure #128: Body Mass Index (BMI) Screening & Follow-up: BMI documented ABOVE normal parameters - f/u documented Measure #131: Pain Assessment & Follow-up: Pain positive & plan documented, Follow-up scheduled Measure #431: Unhealthy Alcohol Use Preventative Care & Scrn: Patient not identified as an unhealthy alcohol user PQRS Narrative: Smoking Status Never smoker Blood Pressure 135/81 Pain Intensity [Lower Back] 4 Scale Used Numeric (1 - 10) Hx Alcohol Use (MH) No Home Medications: Ambulatory Orders Ferrous Sulfate [Feosol] 325 mg PO DAILY 08/30/15 Multivitamins, Thera [Multivitamin] 1 tab PO DAILY 08/30/15 Cyanocobalamin (Vitamin B-12) [Vitamin B12] 5,000 mcg PO DAILY 03/15/16 Controlled Substance Measures - Controlled Substance Measures Is patient prescribed a controlled substance at discharge?: No
== END | disposition home or self-care (01) ==
LOC: PNWHC3 07:46
PROVIDERS: ATTEND Specialist
DX: G89.29 Other chronic pain (principal); M47.816 Spondylosis without myelopathy or radiculopathy, lumbar region; M96.1 Postlaminectomy syndrome, not elsewhere classified; Z98.890 Other specified postprocedural states
CPT/HCPCS: 99211

== ENCOUNTER 2020-01-01 06:11 | Day surgery (SDC) | payer BC ==
[2019-12-30 10:40] VITALS: BMI 28.7
[2020-01-01] MEDS ORDERED: LACTATED RINGERS 1,000 ML IV SCH (06:33)
[2020-01-01 06:46] VITALS: RESP 18; TEMP 98.2
[2020-01-01] MEDS ORDERED: SODIUM CHLORIDE 0.9% (PF) 10 ML VIAL ONE (06:54)
[2020-01-01] MEDS ORDERED: IOPAMIDOL M200 10 ML VIAL ONE (06:54)
[2020-01-01] MEDS ORDERED: methylPREDNISolone ACETATE 80 MG/ML 1 ML VIAL ONE (06:54)
--- NOTE | 2020-01-01 07:20 | P.PCN ---
Date of Procedure: 01/01/20 Procedure(s) Performed: PREOP DIAGNOSIS: 1-failed back surgery syndrome lumbar area. 2-lumbar spondylosis with lumbar facet arthropathy without myelopathy POSTOP DIAGNOSIS: Same as preop diagnosis. PROCEDURE: 1-Caudal epidural steroid injection with epidurolysis and epidurogram under fluoroscopic guidance. (Fluoroscopy images available in the radiology Department ) 2-caudal epidurogram. ANESTHESIA: Local with 1% lidocaine 3 ml only. EBL: Minimal. PROCEDURE INDICATION: The patient with post-laminectomy syndrome with low back pain and radiculopathy radiating down in both legs, here for a caudal epidural steroid injection with epidurolysis. PROCEDURE DESCRIPTION: The patient was seen and identified in the preoperative area. Risks, benefits, complications, and alternatives were discussed with the patient. The patient agreed to proceed with the procedure and signed the consent., and vital signs were stable. Patient was taken to the OR and time out was completed. The patient was placed in the prone position on procedure table and a pillow was placed under the abdomen to reduce lumbar lordosis. The lumbosacral area was prepped and draped in the usual sterile fashion. Vital signs were closely monitored during the procedure. lateral view and the anterior-posterior plates of the sacrum were identified with infiltration of the area overlying the sacral hiatus with 1% lidocaine .A 17 gauge RK epidural needle was used to advance through the sacral hiatus into the caudal epidural space. Omnipaque 180 dye. 2cc was injected and the position of the needle was verified to be in the midline. A Racz catheter was introduced into the epidural space and was advanced towards the L2-3 interspace under direct fluoroscopic guidance. Multiple passes were made with the catheter for lysis of epidural adhesions. Depo-Medrol 80 mg with 3ml of preservative free Lidocaine 1% and 5 ml of preservative free normal saline was injected slowly. Additional spread was seen to L2 under fluoroscopy. The needle and the catheter were withdrawn intact. EPIDUROGRAM: Omnipaque 180 mg dye 2 ml was injected with spread of the dye into the caudal epidural space and with spread cutoff at L5 prior to epidurolysis. Post epidurolysis dye 2 ml was injected and spread was seen to L3-4.There was further spread of the solution together with the dye above the L3 COMPLICATIONS: None. DISPOSITION / PLANS: The patient was placed in a supine position and transferred to the recovery area in a stable condition for observation and was discharged from the recovery room after meeting discharge criteria. Home discharge instructions given to the patient by the staff. The patient was reexamined prior to discharge. The patient will schedule a follow up in the clinic in 2-4 weeks.
[2020-01-01 07:23] VITALS: PULSE 61
[2020-01-01 07:38] VITALS: BP 131/86
--- NOTE | 2020-01-01 07:38 | FL ---
Fluoroscopy History: CAUDAL EPIDURAL dR. PAPPAS SUPERVISED USE OF ABDON FOR A CAUDAL EPIDURAL STEROID INJ FL TIME 0.10 MINS
== END 2020-01-01 07:45 | disposition home or self-care (01) ==
LOC: ORPAIN 06:11
PROVIDERS: ATTEND Specialist
DX: M47.26 Other spondylosis with radiculopathy, lumbar region (principal); M96.1 Postlaminectomy syndrome, not elsewhere classified
CPT/HCPCS: 62264; J1040; Q9966; C1894

== ENCOUNTER → 2020-02-03 | Day surgery (SDC) | payer BC ==
[2020-02-02 12:32] VITALS: BMI 29.2
[~2020-02-03] MED LIST changes: -BUPIVACAINE (PF) 0.5% 30 ML VIAL ONE; +IOPAMIDOL M200 10 ML VIAL ONE; +LACTATED RINGERS 1,000 ML IV SCH; +ROPIVACAINE 5MG/ML 20ML VIAL ONE; +TRIAMCINOLONE ACETONIDE 40 MG/ML 1 ML VIAL ONE; -methylPREDNISolone ACETATE 40 MG/ML 1 ML VIAL ONE
[2020-02-03 06:39] VITALS: RESP 17; TEMP 98
--- NOTE | 2020-02-03 07:14 | P.PCN ---
Date of Procedure: 02/03/20 Anesthesia: local Surgeon: Zain Alcazar Pathology: none sent Condition: stable Disposition: PACU Description of Procedure: PREOP DIAGNOSIS: Lumbar postlaminectomy syndrome. POSTOP DIAGNOSIS: Lumbar postlaminectomy syndrome. PROCEDURE: Caudal epidural steroid injection with epidurolysis and epidurogram under fluoroscopic guidance ANESTHESIA: Local with 1% lidocaine EBL: Minimal. PROCEDURE INDICATION: The patient with post-laminectomy syndrome with low back pain and radiculopathy radiating down in both legs, here for a caudal epidural steroid injection with epidurolysis. PROCEDURE DESCRIPTION: The patient was seen in the preoperative holding area consent was obtained then he was brought into the procedure room and placed in prone position. Skin was prepped with ChloraPrep and draped in a sterile manner. Lidocaine 1% was used to numb the skin up at the target point that was chosen as follows: The lateral view of fluoroscopy was used to identify the sacral hiatus and then after localizing the skin with lidocaine 1% I used 18- gauge epidural needle with a plastic sheath to go through the sacral hiatus and into the sacral canal and then injected 1 mL of Omnipaque for verification of needle tip position. After that the metal core of the needle was taken out and the plastic sheath was kept in the sacral canal. Then Racz catheter was introduced through the plastic sheath and into the epidural space at the sacral canal using the AP view of fluoroscopy up to L5-S1 level then I injected 2 MLS of Omnipaque which showed spread in the epidural space and after few back and forth movements of the Racz catheter I injected 40 mg of Kenalog +2 MLS of Ropivacaine 0.5% +7 MLS of preservative-free normal saline to a total volume of 10 MLS in the epidural space. Patient tolerated procedure well. A copy of the needle placement x-ray was saved to the C-arm machine. COMPLICATIONS: None. DISPOSITION / PLANS: The patient was placed in a supine position and transferred to the recovery area in a stable condition for observation and was discharged from the recovery room after meeting discharge criteria. Home discharge instructions given to the patient by the staff. The patient was reexamined prior to discharge. The patient will schedule a follow up in the clinic in 2-4 weeks.
[2020-02-03 07:17] VITALS: BP 129/83; PULSE 62
--- NOTE | 2020-02-03 08:56 | FL ---
EXAMINATION TYPE: FL guided pain mgmt statistic DATE OF EXAM: 02/03/2020 HISTORY: Pain epidural injection was performed. 8 seconds of fluoroscopic time was provided by the department of r adiology.
== END ==
LOC: ORPAIN 06:06
PROVIDERS: ATTEND Anesthesiology
DX: M96.1 Postlaminectomy syndrome, not elsewhere classified (principal); M54.10 Radiculopathy, site unspecified
CPT/HCPCS: 62264; J3301; Q9966; J2795; C1894

== ENCOUNTER → 2020-07-07 | Outpatient (CLI) | payer BC ==
[2020-07-07 12:55] VITALS: BP 141/93; PULSE 69; RESP 16; TEMP 98.4
--- NOTE | 2020-07-07 13:01 | P.PN ---
Subjective Progress Note Date: 07/07/20 This is the follow up visit for this [id number] male with chronic history of severe low back pain, was diagnosed with lumbar spondylosis with lumbar facet arthropathy , and failed back surgery syndrome and lumbar area , previously we have done,caudal Epidural steroid injection with lysis of epidural adhesions , and before that he did RFA of the medial branch lumbar area, currently is complaining of severe low back pain, the pain is constant , the pain increased with changing position, and increased with any activity, he denies any fever or night sweats. Denies any motor or sensory deficits and that is no change in the bowel movement or urination, the pain never radiated to the front of the lower extremities Objective - Vital Signs Vital signs: Intake & Output 07/06/20 07/07/20 07/07/20 18:59 06:59 18:59 Weight 99.79 kg - Exam Physical Examinations : -Constitutiona : Cooperative , not in acute distress . -HEENT : nech : supple , no Lymphadenopathy , normal thyroid size . : eyes : no ptosis , no icterus, no photophobia . - neurologic : Cranial nerve II to XII intact , no focal neurological deffecit . -psychatric : alert , oriented X 3 , appropriate affect , intact judgment and insight . -Lymphatic : no Lymphadenopathy . - musculoskeltal : Lumber spine moter stegnth lower extremities ,thigh and legs 5/5 Right side , 5/5 Left side deep tendon reflexes : normal Knee Jerk , normal ankle Jerk lumber facet Loading Test =positive Right , posiutive Left Range of motion of the lumbar spine Flexion 30 degrees, extension 10 degrees strait leg raising test = positive at 45 degree Fabere test= positive Right , and positive LT . tenderness over the Sacroiliac joint on the Right , and Left sides Assessment and Plan Plan: Assessment and plan= 1-failed back surgery syndrome and lumbar area. 2-Lumbar spondylosis with lumbar facet arthropathy without myelopathy. 3-lumbar foraminal stenosis. Patient could benefit from caudal epidural steroid injection with lysis of epidural adhesions. Time with Patient: Less than 30 - PQRS measures = - Patient's medications are documented in the chart. -Tobacco use is negative and counseling.Given. -Patient's has not received pneumococcal vaccine. -Advanced care planning discussed, patient not eligible. -Opiate contract not signed. -Pain positive and follow-up visit/procedure is scheduled. -Patient's blood pressure measured [141/93 ] , and documented in the record ,and patient will follow up with the primary care. -Patient's weight was measured and body mass index [31.6 ] above the normal limits and counseling was done. and patient instructed to follow-up with the primary care physician. -Patient was not identified as an unhealthy alcohol user Time with Patient: Less than 30
== END ==
LOC: PNWHC3 12:28
PROVIDERS: ATTEND Specialist
DX: M47.816 Spondylosis without myelopathy or radiculopathy, lumbar region (principal); M48.061 Spinal stenosis, lumbar region without neurogenic claudication; M96.1 Postlaminectomy syndrome, not elsewhere classified
CPT/HCPCS: 99211

== ENCOUNTER 2020-08-03 07:46 | Day surgery (SDC) | payer BC ==
[2020-07-29 11:06] VITALS: BMI 33.2
[2020-08-03 08:05] VITALS: RESP 16; TEMP 98.2
[2020-08-03] MEDS ORDERED: IOPAMIDOL M200 10 ML VIAL ONE (08:23)
[2020-08-03] MEDS ORDERED: SODIUM CHLORIDE 0.9% (PF) 10 ML VIAL ONE (08:23)
[2020-08-03] MEDS ORDERED: methylPREDNISolone ACETATE 40 MG/ML 1 ML VIAL ONE (08:23)
[2020-08-03] MEDS ORDERED: LACTATED RINGERS 1,000 ML IV SCH (08:30)
[2020-08-03 09:01] VITALS: BP 114/76; PULSE 62
--- NOTE | 2020-08-03 10:54 | FL ---
EXAMINATION TYPE: FL guided pain mgmt statistic DATE OF EXAM: 08/03/2020 FLUOROSCOPY Fluoroscopy time of 17 seconds was used during sacral spine pain intervention procedure, caudal epidu ral.. 3 image/s document/s the procedure.
--- NOTE | 2020-08-03 11:38 | P.PCN ---
Date of Procedure: 08/03/20 Description of Procedure: PREOP DIAGNOSIS: Lumbar postlaminectomy syndrome, and lumbar radiculopathy POSTOP DIAGNOSIS: Lumbar postlaminectomy syndrome, and lumbar radiculopathy PROCEDURE: Caudal epidural steroid injection with epidurolysis and epidurogram under fluoroscopic guidance ANESTHESIA: Local with 1% lidocaine; IV sedation : None Surgeon: Caron San EBL: None Specimens removed: None Fluoroscopic image: saved to electronic medical records PROCEDURE INDICATION: The patient with post-laminectomy syndrome with low back pain and left-sided radiculopathy radiating down in both legs but more on the left side, here for a caudal epidural steroid injection with epidurolysis. PROCEDURE DESCRIPTION: The patient was seen and identified in the preoperative area. Risks, benefits, complications, and alternatives were discussed with the patient. The patient agreed to proceed with the procedure and signed the consent. IV was started, and vital signs were stable. Patient was taken to the OR and time out was completed. The patient was placed in the prone position on procedure table and a pillow was placed under the abdomen to reduce lumbar lordosis. The lumbosacral area was prepped and draped in the usual sterile fashion. Vital signs were closely monitored during the procedure. Lateral view and the anterior-posterior plates of the sacrum were identified with infiltration of the area overlying the sacral hiatus with 1% lidocaine .A 17 gauge RK epidural needle was used to advance through the sacral hiatus into the caudal epidural space. Isovue contrast 2 mL was injected and the position of the needle was verified to be in the midline. A Racz catheter was introduced into the epidural space and was advanced towards the L5-S1 interspace under direct fluoroscopic guidance. Multiple passes were made with the catheter for lysis of epidural adhesions. Depo-Medrol 80mg with and12 ml of preservative free normal saline was injected slowly. Additional spread was seen to L4 under fluoroscopy. The needle and the catheter were withdrawn intact. EPIDUROGRAM: Isovue dye 2 ml was injected with spread of the dye into the caudal epidural space and with spread cutoff at S1 prior to epidurolysis. Post epidurolysis dye 1 ml was injected and spread was seen to L4. COMPLICATIONS: None. DISPOSITION / PLANS: The patient was placed in a supine position and transferred to the recovery area in a stable condition for observation and was discharged from the recovery room after meeting discharge criteria. Home discharge instructions given to the patient by the staff. The patient was reexamined prior to discharge. The patient will schedule a follow up in the clinic in 4 weeks. note: Patient was given medications #1 Topamax 50 mg by mouth daily at bedtime for 3 days followed by every 12 hours if not feeling drowsy. I dispensed 60 pills with 1 refill patient requesting to drive for long way to come to the clinic so an extra prescription refill was given. Patient recommended to drink plenty of water to prevent kidney stones. #2 magnesium oxide 400 mg by mouth daily dispense 30 with 1 refill.
== END 2020-08-03 09:04 | disposition home or self-care (01) ==
LOC: ORPAIN 07:46
DX: M96.1 Postlaminectomy syndrome, not elsewhere classified (principal); M54.16 Radiculopathy, lumbar region; Z98.890 Other specified postprocedural states; Z98.811 Dental restoration status
CPT/HCPCS: 62264; J1030; Q9966

== ENCOUNTER → 2021-12-16 | Outpatient (CLI) | payer OTHER ==
--- NOTE | 2021-12-16 16:27 | US ---
EXAMINATION TYPE: US groin RT DATE OF EXAM: 12/16/2021 COMPARISON: NONE CLINICAL HISTORY: L02.211. Hernia surgery 11/09/21. edema right lower abdomen near incision scanned area of concern, right lower abdomen/groin near incision, complex fluid collection = 6.2 x 2. 5 x 4.1cm There is no color Doppler flow surrounding it. IMPRESSION: Complex fluid collection in the area of concern may represent postop seroma or resolving hematoma. No increased vascularity to suggest abscess.
[2021-12-16 23:14] LABS: Basophils # (A) 0.06 X 10*3/uL (0.00-0.10); Basophils % (A) 0.7 %; Eosinophils # (A) 0.06 X 10*3/uL (0.04-0.35); Eosinophils % (A) 0.7 %; HCT 43.3 % (39.6-50.0); HGB 14.5 g/dL (13.0-17.0); Immature Grans, Automated 0.3 %; Lymphocytes # (A) 1.07 X 10*3/uL (0.90-5.00); Lymphocytes % (A) 11.6 %; MCHC 33.5 g/dL (32.0-37.0); MCV 89.5 fL (80.0-97.0); Mean Platelet Volume 9.8 fL (9.5-12.2); Monocytes # (A) 0.65 X 10*3/uL (0.20-1.00); Monocytes % (A) 7.1 %; NRBC Per 100 WBC 0 /100 WBCS (0.0-0.0); Neutrophils # (A) 7.33 X 10*3/uL (1.80-7.70); Neutrophils % (A) 79.6 %; Platelet Count 401 X 10*3/uL (140-440); RBC 4.84 X 10*6/uL (4.40-5.60); RDW 12.3 % (11.5-14.5)
== END | disposition home or self-care (01) ==
LOC: RADUSWWP 15:55
PROVIDERS: ATTEND Family Medicine
DX: L02.211 Cutaneous abscess of abdominal wall (principal); R60.9 Edema, unspecified
CPT/HCPCS: 85025